=== PATIENT | female | born 1975 | race Caucasian/White ===

== ENCOUNTER 2017-05-26 11:10 | Inpatient (IN) | payer MEDICAID ==
[~2017-05-26] VITALS: Ht 175.3 cm; Wt 73.7 kg
[2017-05-26 12:00] LABS: BASOPHIL % 0.5 % (0-2); PLATELET COUNT 267 x10^3mcL (130-400); RED CELL DISTRIBUTION WIDTH 14.7 % (11.5-14.5)
[2017-05-26 12:14] LABS: CALCIUM 9.2 mg/dL (8.5-10.1); CARBON DIOXIDE 22.9 mmol/L (21-32); CHLORIDE SERUM 105 mmol/L (98-107); CREATININE SERUM 0.8 mg/dL (0.6-1.0); GFR1 > 60 mL/min; GLUCOSE SERUM 113 mg/dL (74-106); POTASSIUM SERUM 3.3 mmol/L (3.5-5.1); SODIUM SERUM 141 mmol/L (136-145)
[2017-05-26 12:22] LABS: ALBUMIN 4.1 g/dL (3.4-5.0); ALKALINE PHOSPHATASE 60 U/L (46-116); ALT/SGPT 25 U/L (14-59); AST/SGOT 25 U/L (15-37); BILIRUBIN TOTAL 1.3 mg/dL (0.20-1.00)
[2017-05-26 12:27] LABS: AMYLASE 1038 U/L (25-115); TOTAL PROTEIN, SERUM 8.3 g/dL (6.4-8.2)
[2017-05-26 12:58] LABS: LIPASE 18753 IU/L (73-393)
[2017-05-26 14:24] VITALS: BP 135/78
[2017-05-26 16:11] VITALS: Ht 175.3 cm; Wt 73.7 kg
[2017-05-26 18:01] VITALS: BP 109/62
[2017-05-26 19:33] LABS: T3 TOTAL 0.8 ng/mL
[2017-05-26 20:02] LABS: MAGNESIUM 1.9 mg/dL (1.8-2.4); PHOSPHOROUS 5.2 mg/dL (2.5-4.9)
[2017-05-26 20:08] LABS: FREE T4 1.6 ng/dL (0.76-1.46); FREE THYROXINE INDEX 2.4 ug/dL (1.4-4.5); T4(THYROXINE) 6.8 ug/dL (4.7-13.3)
[2017-05-26 20:12] LABS: CHOLESTEROL/HDL RATIO 1.7
[2017-05-26 21:44] VITALS: BP 110/55
[2017-05-27 01:38] LABS: microscopic required? YES; urine erythrocyte 3+ (NEGATIVE)
[2017-05-27 02:02] LABS: AMPHETAMINE QUAL UR NONE DETECTED (NEG <=1000)
[2017-05-27 05:32] VITALS: BP 121/71
[2017-05-27 10:06] VITALS: BP 104/55
[2017-05-27 10:40] LABS: CARBON DIOXIDE 24.4 mmol/L (21-32); CHLORIDE SERUM 107 mmol/L (98-107); CREATININE SERUM 0.7 mg/dL (0.6-1.0); GFR1 > 60 mL/min; GLUCOSE SERUM 91 mg/dL (74-106); MAGNESIUM 1.9 mg/dL (1.8-2.4); PHOSPHOROUS 3.1 mg/dL (2.5-4.9); POTASSIUM SERUM 3.7 mmol/L (3.5-5.1); SODIUM SERUM 140 mmol/L (136-145)
[2017-05-27 11:20] LABS: BASOPHIL % 0.1 % (0-2); PLATELET COUNT 194 x10^3mcL (130-400)
[2017-05-27 11:28] LABS: RED CELL DISTRIBUTION WIDTH 15.3 % (11.5-14.5)
[2017-05-27 14:11] VITALS: BP 116/65
[2017-05-27 17:32] VITALS: BP 105/62
[2017-05-27 21:39] VITALS: BP 105/62
[2017-05-28 05:41] VITALS: BP 111/66
[2017-05-28 06:09] LABS: BASOPHIL % 0.2 % (0-2); PLATELET COUNT 189 x10^3mcL (130-400)
[2017-05-28 06:25] LABS: RED CELL DISTRIBUTION WIDTH 14.9 % (11.5-14.5)
[2017-05-28 06:57] LABS: CALCIUM 8.3 mg/dL (8.5-10.1); CHLORIDE SERUM 102 mmol/L (98-107); CREATININE SERUM 0.6 mg/dL (0.6-1.0); GFR1 > 60 mL/min; GLUCOSE SERUM 72 mg/dL (74-106); MAGNESIUM 1.8 mg/dL (1.8-2.4); PHOSPHOROUS 2.6 mg/dL (2.5-4.9); POTASSIUM SERUM 3.9 mmol/L (3.5-5.1); SODIUM SERUM 136 mmol/L (136-145)
[2017-05-28 07:06] LABS: AMYLASE 636 U/L (25-115)
[2017-05-28 08:11] LABS: LIPASE 3618 IU/L (73-393)
[2017-05-28 10:16] VITALS: BP 117/68
[2017-05-28] MEDS ORDERED: NORCO1 TA2 PO (16:42)
[2017-05-28] MEDS ORDERED: ZOFRAN4 M3 PO (16:42)
[2017-05-28 17:19] VITALS: BP 113/60
[2017-05-28 19:46] VITALS: BP 113/60
== END 2017-05-28 20:40 | disposition home or self-care (01) | DRG 282 ==
LOC: ED 11:10 → DU 13:33 → MU 05-28 06:29
PROVIDERS: Emergency Medicine; ADMIT Family Medicine
DX: K85.90 Acute pancreatitis without necrosis or infection, unspecified (principal); N17.0 Acute kidney failure with tubular necrosis; E83.39 Other disorders of phosphorus metabolism; E83.42 Hypomagnesemia; E87.6 Hypokalemia; F43.23 Adjustment disorder with mixed anxiety and depressed mood; N39.0 Urinary tract infection, site not specified; F10.20 Alcohol dependence, uncomplicated; F12.10 Cannabis abuse, uncomplicated; D53.9 Nutritional anemia, unspecified; Z68.24 Body mass index [BMI] 24.0-24.9, adult; Z87.891 Personal history of nicotine dependence
CPT/HCPCS: 83880; 84439; J0696; J1170; J1885; J2270; J2405; J2550; J7030; Q0092